=== PATIENT | female | born 1950 | race Hispanic/Latino ===

== ENCOUNTER 2017-10-12 11:08 | Day surgery (SDC) | payer MEDICARE ==
[2017-10-09 14:24] VITALS: BMI 19.8
[2017-10-12 11:48] VITALS: TEMP 98
[2017-10-12 11:56] LABS: BASO # 0.06 K/mm3 (0.0-2.0); BASO % 0.5 % (0.0-3.0); EOS # 0.4 (0.0-0.7); EOS % 3.1 % (1.5-5.0); GRAN # 6.69 (1.4-6.5); GRAN % 56.1 % (50.0-68.0); HEMOGLOBIN 14.2 g/dL (12.0-16.0); LYMPH # 3.8 (1.2-3.4); LYMPH % 32.1 % (22.0-35.0); MEAN CELL VOLUME 91.2 fl (80.0-105.0); MEAN CORPUSCULAR HEMOGLOBIN 32.9 pg (25.0-35.0); MEAN CORPUSCULAR HGB CONC 36.1 g/dl (31.0-37.0); MEAN PLATELET VOLUME 9.5 fl (7.0-11.0); MONO % 8.2 % (1.0-6.0); RBC 4.31 10^6/uL (3.5-6.1); RED CELL DISTRIBUTION WIDTH 12.2 % (11.5-14.5); WHITE BLOOD COUNT 11.9 10^3/ul (4.5-11.0)
[2017-10-12 12:42] LABS: BLOOD UREA NITROGEN 14 mg/dL (7-21); CALCIUM 9.8 mg/dL (8.4-10.5); GFR AFRICAN-AMERICAN > 60; GFR NON-AFRICAN AMERICAN > 60
[2017-10-12 12:44] LABS: INR 0.95 (0.93-1.08); PARTIAL THROMBOPLASTIN TIME 35.7 Seconds (25.1-36.5); PROTHROMBIN TIME 10.9 SECONDS (9.4-12.5)
[2017-10-12] MEDS ORDERED: Lidocaine 1% Inj (20ml) ONE (13:52)
[2017-10-12] MEDS ORDERED: Midazolam 2 MG/2 ML VIAL ONE (14:16)
[2017-10-12] MEDS ORDERED: Oxycodone/Acetaminophen 5/325 mg Tab PO PRN (14:45)
[2017-10-12] MEDS ORDERED: Sodium Chloride 0.45% 1,000 ML IV SCH (14:45)
[2017-10-12] MEDS ORDERED: Midazolam 2 MG/2 ML VIAL IVP ONE (15:04)
[2017-10-12 15:29] VITALS: O2SAT 96
--- NOTE | 2017-10-12 16:08 | RAD ---
Date of service: 10/12/2017 HISTORY: rt lung bx COMPARISON: No prior. FINDINGS: LUNGS: There is no evidence of pneumothorax post biopsy. PLEURA: No significant pleural effusion identified, no pneumothorax apparent. CARDIOVASCULAR: Normal. OSSEOUS STRUCTURES: No significant abnormalities. VISUALIZED UPPER ABDOMEN: Normal. OTHER FINDINGS: None. IMPRESSION: No evidence of post biopsy pneumothorax
[2017-10-12 16:43] VITALS: RESP 18
[2017-10-12 16:51] VITALS: BP 130/74; PULSE 72
--- NOTE | 2017-10-12 16:56 | CT ---
PROCEDURE: CT guided right lung biopsy. HISTORY: 2.2 cm right hilar mass. Smoker. Suspicious for malignancy. PHYSICIAN(S): Kwasi Carlos MD. TECHNIQUE: The relative risks and indications of the procedure were explained to the patient and consent obtained. The patient was placed supine on the CT scanner and preliminary images through the mid lungs obtained. Conscious sedation and monitoring were provided throughout the procedure by a nurse. There is a 2.2 cm oblong mass in the right hilum superiorly.. A right anterior approach was selected and the area prepped and draped in the usual sterile fashion. 1% Xylocaine was used to anesthetize the skin and soft tissues. A 19 gauge guiding needle was advanced into the 2.2 cm right hilar mass. Its position was confirmed with CT. Using coaxial technique, multiple core biopsies were obtained. The postprocedure images show no evidence of large pneumothorax or significant hemorrhage. IMPRESSION: 1. CT-guided right lung biopsy as described above.
== END 2017-10-12 16:50 | disposition home or self-care (01) ==
LOC: SDS 11:08
PROVIDERS: ATTEND Radiology Vascular & Interventional Radiology
DX: C34.01 Malignant neoplasm of right main bronchus (principal)
CPT/HCPCS: 32405; 36415; 71045; 77012; 80048; 85025; 85610; 85730; 88305; J2250; J2405; J3010; J7030

== ENCOUNTER 2018-04-12 06:46 | Outpatient (CLI) | payer MEDICARE | END 2018-04-12 06:47 | disposition home or self-care (01) | LOC: CARDIO 06:46 ==

== ENCOUNTER 2018-05-17 08:54 | Day surgery (SDC) | payer MEDICARE ==
[2018-04-12 12:47] VITALS: BMI 18.2
[2018-05-17] MEDS ORDERED: Midazolam 2 MG/2 ML VIAL ONE (11:16)
[2018-05-17] MEDS ORDERED: Flumazenil 0.1 mg/ml Inj (5ml) IVP ONE (11:16)
[2018-05-17] MEDS ORDERED: Naloxone 0.4 mg/ml Inj (Adult) ONE (11:16)
[2018-05-17] MEDS ORDERED: Midazolam 2 MG/2 ML VIAL IV ONE ×3 (11:22→11:28)
[2018-05-17] MEDS ORDERED: Sodium Chloride 0.9% 1,000 ML IV SCH (12:00)
[2018-05-17 13:31] VITALS: RESP 20; TEMP 97; O2SAT 95
[2018-05-17 14:22] VITALS: BP 124/75; PULSE 77
--- NOTE | 2018-05-17 16:13 | CARD ---
APPROVED REPORT Date of service: 05/17/2018 EXAM: Transesophageal echocardiogram with color flow Doppler. INDICATION AORTIC STENOSIS 2D DIMENSIONS LVOT Diameter1.8 (1.8-2.4cm) M-Mode DIMENSIONS Aortic Root3.30 (2.2-3.7cm)Aortic Cusp Exc.1.50 (1.5-2.0cm) Aortic Valve LVOT Peak Djgechqu98.6cm/sLVOT VTI10.10cm Mitral Valve E/A ratio0.0 TDI E/Lateral E'0.0E/Medial E'0.0 Reason For Test : Evaluate Aortic valve( severity of ) PROCEDURE After obtaining informed consent, patient underwent transesophageal echo in the Echo Lab. Type of Sedation : Conscious Sedation Sedation was administered by Dr. madison. Sedation was achieved with Versed and , Fentanyl 2 mg and 100 mcg intravenously. Transesophageal probe was inserted and advanced into esophagus without difficulty. Echo enhancement indication: R/O Septal defect. Echo enhancement agent administered: Agitated Saline The [facility] was performed without complications. Throughout the procedure, the blood pressure, pulse oximetry, cardiac rhythm, and rate were monitored. The patient tolerated the procedure without adverse effects. Recovery from conscious sedation was uneventful and vital signs were stable. LEFT VENTRICLE The left ventricle is normal size. There is normal left ventricular wall thickness. The left ventricular function is normal.EF-55-60% There is normal LV segmental wall motion. The left ventricular diastolic function is normal. No left ventricle thrombus noted on this study. There is no ventricular septal defect visualized. There is no left ventricular aneurysm. There is no mass noted in the left ventricle. RIGHT VENTRICLE The right ventricle is normal size. There is normal right ventricular wall thickness. The right ventricular systolic function is normal. ATRIA The left atrium size is normal. The right atrium size is normal. The interatrial septum is intact with no evidence for an atrial septal defect, by Color flow and bubble study. AORTIC VALVE The aortic valve is moderately calcified with some what decrease opening. The aortic valve is tri-cuspid. There is trace aortic regurgitation. There is mild valvular aortic stenosis. NICOLETTE by plannimetry 1.6-1.7 cm2. Colud not get Peak gradient with CW. MITRAL VALVE The mitral valve leaflets are thickened. There is no evidence of mitral valve prolapse. There is no mitral valve stenosis. Mitral regurgitation is trace to mild. TRICUSPID VALVE The tricuspid valve leaflets display thickening. There is trace to mild tricuspid regurgitation. There is no tricuspid valve prolapse or vegetation. There is no tricuspid valve stenosis. PULMONIC VALVE The pulmonic valve is borderline thickened. There is trace pulmonic valvular regurgitation. There is no pulmonic valvular stenosis. GREAT VESSELS The aortic root is normal in size. The ascending aorta is normal in size. The pulmonary artery is normal. The IVC is normal in size and collapses >50% with inspiration. PERICARDIAL EFFUSION Trivial Pericardial effusion. There is no pleural effusion. <Conclusion> Normal chamber Size. EF-55-60% There is trace aortic regurgitation. There is mild valvular aortic stenosis. NICOLETTE by plannimetry 1.6-1.7 cm2 Mitral regurgitation is trace to mild. There is trace to mild tricuspid regurgitation. Trivial Pericardial effusion. The interatrial septum is intact with no evidence for an atrial septal defect, by Color flow and bubble study. Velocity in SLIME is more than 0.8 m/s. Mild to Moderate Flat Plaque in descending aorta noted. CC; drs. Salinas / Juan Carlos
== END 2018-05-17 14:45 | disposition home or self-care (01) ==
LOC: TEE 08:54 → CATH 08:54 → TEE 14:45
PROVIDERS: ATTEND Internal Medicine Cardiovascular Disease
DX: I08.0 Rheumatic disorders of both mitral and aortic valves (principal); I70.0 Atherosclerosis of aorta
CPT/HCPCS: 93312; J2250; J3010; J7030

== ENCOUNTER 2018-05-24 05:11 | Outpatient (CLI) | payer MEDICARE | END 2018-05-24 05:12 | disposition home or self-care (01) | LOC: PET-BROA 05:11 | DX: C34.2 Malignant neoplasm of middle lobe, bronchus or lung (principal) ==